=== PATIENT | female | born 1945 | race Caucasian/White ===

== ENCOUNTER 2020-08-25 04:42 | Observation (INO) | payer MEDICARE ==
[~2020-08-25] VITALS: Ht 167.6 cm; Wt 47.2 kg
[~2020-08-25 04:42] MED LIST: ADVAIR 500-501 EACH INH; ASPIR 8181 MG PO; ATORVASTATIN CA40 MG PO; BINOSTO70 MG PO; CALCIUM 600 +1 EAC1 PO; COZAAR 50 MG TA50 M2 PO; KLOR-CON 1010 MEQ PO; LEVAQUIN 500 M500 M2 PO; LOPRESSOR25 PO; OMEPRAZOLE40 MG PO; POTASSIUM20; SINGULAIR 10 MG10 M1 PO; TAZTIA XT180 MG PO; VENTOLIN HFA 1818 GM INH
[2020-08-25 04:48] VITALS: BP 128/66
[2020-08-25 05:20] LABS: ABSOLUTE BASOPHILS 0.1 thou/uL (0.0-0.2); ABSOLUTE EOSINOPHILS 0.1 thou/uL (0.0-0.7); ABSOLUTE LYMPHOCYTES 1.3 thou/uL (0.8-5.3); ABSOLUTE MONOCYTES 0.7 thou/uL (0.0-1.2); ABSOLUTE NEUTROPHILS 10.4 thou/uL (1.6-8.1); BASOPHILS 0.7 %; EOSINOPHILS 1.1 %; HEMOGLOBIN 9.9 gm/dL (12.0-15.0); LYMPHOCYTES 10.7 %; MCH 28.8 pg (26.0-34.0); MCV 90.1 fL (80.0-100.0); MONOCYTES 5.2 %; MPV 8.6 fl. (7.2-11.1); NUCLEATED RBCS 0 /100WBC; PLATELET COUNT* 375 thou/uL (150-400); POLYS 82.3 %; RBC 3.44 mil/uL (4.20-5.00); RDW-CV 16.8 % (10.5-14.5); WBC 12.6 thou/uL (4.0-11.0)
[2020-08-25] MEDS ORDERED: CARVEDILOL12.5 MG PO (05:21)
[2020-08-25] MEDS ORDERED: XARELTO20 MG PO (05:22)
[2020-08-25 05:24] LABS: CALCIUM 9.9 mg/dL (8.5-10.1); CREATININE 1.8 mg/dL (0.6-1.3); POTASSIUM 3.4 mmol/L (3.5-5.1)
[2020-08-25] MEDS ORDERED: LISINOPRIL10 MG PO (05:24)
[2020-08-25] MEDS ORDERED: FUROSEMIDE 20 M20 M1 PO (05:24)
[2020-08-25] MEDS ORDERED: PROAIR HFA8.5 GM INH (05:28)
[2020-08-25] MEDS ORDERED: ADVAIR 500-501 EACH INH (05:28)
[2020-08-25] MEDS ORDERED: FLONASE 0.05%50 MCG NARES (05:28)
[2020-08-25 05:29] LABS: ALBUMIN 3.4 g/dL (3.4-5.0); MAGNESIUM 1.8 mg/dL (1.8-2.4); TOTAL BILIRUBIN 0.5 mg/dL (<0.1-1.0); TOTAL PROTEIN 6.9 g/dL (6.4-8.2)
[2020-08-25 08:02] VITALS: BP 133/82
[2020-08-25 08:45] VITALS: BP 123/63
[2020-08-25 11:55] VITALS: BP 102/50
--- NOTE | 2020-08-25 15:29 | EKG ---
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 08/25/20 1528 0456 0456 Juan Mariano MD, [facility] /EPI
[2020-08-25 16:36] VITALS: BP 108/55
--- NOTE | 2020-08-25 16:42 | NUR ---
PATIENT ARRIVED TO 211 THIS AM PER CART FROM ER. PATIENT IS ALERT AND ORIENTED X 4. SHE DENIES PAIN. SHE C/O A HX OF DIARRHEA. NO LOOSE STOOLS SEEN SINCE ARRIVAL. PATIENT PLACED ON TELE MONITOR. TELE SHOWS SR TO ST. DR DANIELS IN TO SEE PATIENT. MEDICATION ORDERS WRITTEN. IV FLUIDS INFUSING. PATIENT STARTED ON A CARB CONTROLLED DIET. NO FALLS OR INJURY.
[2020-08-25 20:00] VITALS: BP 109/52
[2020-08-26 00:01] VITALS: BP 99/53
--- NOTE | 2020-08-26 05:58 | NUR ---
PATIENT SLEPT MOST OF THE NIGHT. PATIENT HAS STILL HAD NO LOOSE STOOLS. EFFIE IS HOPING TO POSSIBLY GO HOME TODAY. WILL CONTINUE TO MONITOR.
--- NOTE | 2020-08-26 07:15 | NUR ---
CHANGE OF SHIFT BEDSIDE REPORT GIVEN PATIENT SEEN AT BEDSIDE IN BED ASLEEP ASSUMED PATIENT CARE
[2020-08-26 08:00] VITALS: BP 125/62
[2020-08-26 10:53] LABS: HEMATOCRIT 22.1 % (37.0-47.0); MCH 29.4 pg (26.0-34.0); MCHC 32.7 g/dL (28.0-37.0); MCV 90.1 fL (80.0-100.0); MPV 8.4 fl. (7.2-11.1); RBC 2.45 mil/uL (4.20-5.00); RDW-CV 17.2 % (10.5-14.5); WBC 4.1 thou/uL (4.0-11.0)
[2020-08-26 10:58] VITALS: BP 125/62
[2020-08-26 11:06] LABS: HEMOGLOBIN 7.2 gm/dL (12.0-15.0)
[2020-08-26 11:07] LABS: CALCIUM 8.3 mg/dL (8.5-10.1); CREATININE 1.2 mg/dL (0.6-1.3); POTASSIUM 3.3 mmol/L (3.5-5.1)
--- NOTE | 2020-08-26 14:20 | NUR ---
patient dcd to home iv removed and personal belongings returned dc instructions given patient assisted to and out to taxi cab arranged for transportattion home
== END 2020-08-26 14:23 | disposition home or self-care (01) ==
LOC: M.ERS 04:42 → M.TBA-ER 06:32 → M.2W 08:15
PROVIDERS: Emergency Medicine; Family Medicine; ADMIT Internal Medicine; ATTEND Internal Medicine
DX: R19.7 Diarrhea, unspecified (principal); E86.0 Dehydration; Z20.822 Contact with and (suspected) exposure to COVID-19; E87.6 Hypokalemia; N17.0 Acute kidney failure with tubular necrosis; I10 Essential (primary) hypertension; K21.9 Gastro-esophageal reflux disease without esophagitis; R10.30 Lower abdominal pain, unspecified; J43.9 Emphysema, unspecified; Z90.710 Acquired absence of both cervix and uterus; Z90.49 Acquired absence of other specified parts of digestive tract; Z79.899 Other long term (current) drug therapy; Z88.1 Allergy status to other antibiotic agents; Z88.0 Allergy status to penicillin; Z88.2 Allergy status to sulfonamides; Z85.038 Personal history of other malignant neoplasm of large intestine

== ENCOUNTER 2021-01-17 18:20 | Inpatient (IN) | payer MEDICARE ==
[~2021-01-17] VITALS: Ht 167.6 cm; Wt 45.5 kg
--- NOTE | ~2021-01-17 | EMS ---
[address] [place] [address] EMS Patient Care Report Name: LIZETTE REES Room: [address] IN [facility]#: [id number] Admission: 01/17/21 Attend Phys: Tommie Lino Discharge: Date of : 45 Report #: [id number] THIS REPORT FOR: //name// Report Transmitted: 01/18/2021 01:34 EMS Care Summary [facility] Scott CONTE Incident [id number] @ 01/17/2021 17:31 Incident Location [address] [place] [address] Patient Lizette Rees Female, 75 Years 1945 Patient Address [address] [place] [address] Patient History Chronic Obstructive Pulmonary Disease (COPD),Hypertension (HTN),Atrial Fibrillation, Patient Allergies , Patient Medications Amlodipine, Xarelto, Carvedilol, Atorvastatin, Omeprazole, , Furosemide, Chief Complaint Weakness Disposition Transported No Lights/[place] Dispatch Reason Sick Person Transported To [facility] Narrative Dispatched for unknown medical, nonemergent. Arrive on scene, find patient sitting in he rlivign room waiting for EMS. Patient has a sling for her left arm. Patient is alert and answers EMS questions appropriately. I note no [address] [place] [address] EMS Patient Care Report Name: LIZETTE REES Room: [address] IN [facility]#: [id number] Admission: 01/17/21 Attend Phys: Tommie Lino Discharge: Date of : 45 Report #: [id number] obvious signs of distreess or any obvious injuries. patient states since this morning she has felt more weak than normal. She states she does not know the cause of the weakness, she thinks she is possibl dehydrated; though she states she drinks plenty of water. Patient had recently had a fall that broke her left collar bone on 01/08. Primary assessment showed alert and oriented female with a complaint of weakness. Obtain secondary questions on scene. patient was able to walk with EMS to the ambulance with minimal assistance without incident. Patient sat on cot and all safety belts were fasten. Loaded into ambulance and placed patient on the monitor. Obtained a 12 lead ekg, then began transport to [place]. En route, patient rested comfortably on the cot. EMS monitored her vitals the entire transport, they never left normal ranges. Gave radio report to [facility];arrived and unloaded patient without incident.Took patient to ER room Initial Vitals @17:51 @17:49P: 87,R: 16,BP: 153/87, @18:05P: 84,R: 16,BP: 139/74, @17:49GCS: 15, @18:05GCS: 15, @17:55 @18:13Glucose: -1, Assessments @17:41MENTAL:SKIN:HEENT:LUNG SOUNDS:ABDOMEN:PELVIS//GI:EXTREMITIES:PULSE:NEURO: Impression Generalized Weakness Procedures @17:5112-Lead ECGResponse: UnchangedSucceeded Timeline 17:31,Call Received 17:,Dispatch Notified 17:31,Psap Call 17:31,Dispatched 17:31,En Route 17:39,On Scene 17:41,At Patient 17:49,BP: 153/87 M,PULSE: 87,RR: 16 R,SPO2: Ox,ETCO2: ,BG: ,PAIN: ,GCS: , 17:49,BP: / M,PULSE: ,RR: R,SPO2: Ox,ETCO2: ,BG: ,PAIN: ,GCS: 15, 17:51,12-Lead ECG,Response: UnchangedSucceeded, 17:51,BP: / M,PULSE: ,RR: R,SPO2: Ox,ETCO2: ,BG: ,PAIN: ,GCS: , 17:52,Depart Scene 17:55,BP: / M,PULSE: ,RR: R,SPO2: Ox,ETCO2: ,BG: ,PAIN: ,GCS: , [place] [address] EMS Patient Care Report Name: LIZETTE REES Room: [address] [facility]#: [id number] Admission: 01/17/21 Attend Phys: Tommie Lino Discharge: Date of : 45 Report #: [id number] 18:05,BP: 139/74 M,PULSE: 84,RR: 16 R,SPO2: Ox,ETCO2: ,BG: ,PAIN: ,GCS: , 18:05,BP: / M,PULSE: ,RR: R,SPO2: Ox,ETCO2: ,BG: ,PAIN: ,GCS: 15, 18:13,BP: / M,PULSE: ,RR: R,SPO2: Ox,ETCO2: ,BG: -1,PAIN: ,GCS: , 18:18,At Destination 18:28,Call Closed Disclaimer v1.1 Copyright 2020 [employer] This EMS Care Summary contains data elements from the applicable legal record (which may be displayed differently). It is designed to provide pertinent information for the following purposes: continuity of care, clinical quality, and state data reporting. The complete legal record is available to ED staff and administrators of the receiving hospital in ES's Patient Tracker. All data is provided "as is."
--- NOTE | ~2021-01-17 | EMS ---
[address] [place] [address] EMS Patient Care Report Name: LIZETTE REES Room: [address] IN [facility]#: [id number] Admission: 01/17/21 Attend Phys: Tommie Lino Discharge: Date of : 45 Report #: [id number] THIS REPORT FOR: //name// Report Transmitted: 01/18/2021 01:34 EMS Care Summary [facility] Scott [place]TE Incident [id number] @ 01/17/2021 17:31 Incident Location [address] [place] [address] Patient Lizette Rees Female, 75 Years 1945 Patient Address [address] [place] [address] Patient History Chronic Obstructive Pulmonary Disease (COPD),Hypertension (HTN),Atrial Fibrillation, Patient Allergies , Patient Medications Amlodipine, Xarelto, Carvedilol, Atorvastatin, Omeprazole, , Furosemide, Chief Complaint Weakness Disposition Transported No Lights/[place] Dispatch Reason Sick Person Transported To [facility] Narrative Dispatched for unknown medical, nonemergent. Arrive on scene, find patient sitting in he rlivign room waiting for EMS. Patient has a sling for her left arm. Patient is alert and answers EMS questions appropriately. I note no [address] [place] [address] EMS Patient Care Report Name: LIZETTE REES Room: [address] IN [facility]#: [id number] Admission: 01/17/21 Attend Phys: Tommie Lino Discharge: Date of : 45 Report #: [id number] obvious signs of distreess or any obvious injuries. patient states since this morning she has felt more weak than normal. She states she does not know the cause of the weakness, she thinks she is possibl dehydrated; though she states she drinks plenty of water. Patient had recently had a fall that broke her left collar bone on 01/08. Primary assessment showed alert and oriented female with a complaint of weakness. Obtain secondary questions on scene. patient was able to walk with EMS to the ambulance with minimal assistance without incident. Patient sat on cot and all safety belts were fasten. Loaded into ambulance and placed patient on the monitor. Obtained a 12 lead ekg, then began transport to [place]. En route, patient rested comfortably on the cot. EMS monitored her vitals the entire transport, they never left normal ranges. Gave radio report to [facility];arrived and unloaded patient without incident.Took patient to ER room Initial Vitals @17:51 @17:49P: 87,R: 16,BP: 153/87, @18:05P: 84,R: 16,BP: 139/74, @17:49GCS: 15, @18:05GCS: 15, @17:55 @18:13Glucose: -1, Assessments @17:41MENTAL:SKIN:HEENT:LUNG SOUNDS:ABDOMEN:PELVIS//GI:EXTREMITIES:PULSE:NEURO: Impression Generalized Weakness Procedures @17:5112-Lead ECGResponse: UnchangedSucceeded Timeline 17:31,Call Received 17:,Dispatch Notified 17:31,Psap Call 17:31,Dispatched 17:31,En Route 17:39,On Scene 17:41,At Patient 17:49,BP: 153/87 M,PULSE: 87,RR: 16 R,SPO2: Ox,ETCO2: ,BG: ,PAIN: ,GCS: , 17:49,BP: / M,PULSE: ,RR: R,SPO2: Ox,ETCO2: ,BG: ,PAIN: ,GCS: 15, 17:51,12-Lead ECG,Response: UnchangedSucceeded, 17:51,BP: / M,PULSE: ,RR: R,SPO2: Ox,ETCO2: ,BG: ,PAIN: ,GCS: , 17:52,Depart Scene 17:55,BP: / M,PULSE: ,RR: R,SPO2: Ox,ETCO2: ,BG: ,PAIN: ,GCS: , [place] [address] EMS Patient Care Report Name: LIZETTE REES Room: [address] IN [facility]#: [id number] Admission: 01/17/21 Attend Phys: Tommie Lino Discharge: Date of : 45 Report #: [id number] 18:05,BP: 139/74 M,PULSE: 84,RR: 16 R,SPO2: Ox,ETCO2: ,BG: ,PAIN: ,GCS: , 18:05,BP: / M,PULSE: ,RR: R,SPO2: Ox,ETCO2: ,BG: ,PAIN: ,GCS: 15, 18:13,BP: / M,PULSE: ,RR: R,SPO2: Ox,ETCO2: ,BG: -1,PAIN: ,GCS: , 18:18,At Destination 18:28,Call Closed Disclaimer v1.1 Copyright 2020 [employer] This EMS Care Summary contains data elements from the applicable legal record (which may be displayed differently). It is designed to provide pertinent information for the following purposes: continuity of care, clinical quality, and state data reporting. The complete legal record is available to ED staff and administrators of the receiving hospital in ES's Patient Tracker. All data is provided "as is."
[~2021-01-17 18:20] MED LIST changes: +CARVEDILOL12.5 MG PO; +FLONASE 0.05%50 MCG NARES; +FUROSEMIDE 20 M20 M1 PO; +LISINOPRIL10 MG PO; +PROAIR HFA8.5 GM INH; +XARELTO20 MG PO
[2021-01-17 18:22] VITALS: BP 148/79
[2021-01-17 19:20] LABS: URINE BILIRUBIN NEGATIVE (Negative); URINE BLOOD 1+ (Negative); URINE CLARITY CLEAR; URINE COLOR YELLOW; URINE GLUCOSE-RANDOM NEGATIVE (Negative); URINE KETONES NEGATIVE (Negative); URINE LEUKOCYTES NEGATIVE (Negative); URINE NITRITE NEGATIVE (Negative); URINE PROTEIN NEGATIVE (Negative); URINE SPECIFIC GRAVITY <= 1.005 (1.005-1.030); URINE UROBILINOGEN 0.2 E.U./dl (0.2-1.0)
[2021-01-17 19:23] LABS: ABSOLUTE EOSINOPHILS 0.1 thou/uL (0.0-0.7); ABSOLUTE LYMPHOCYTES 0.9 thou/uL (0.8-5.3); ABSOLUTE MONOCYTES 0.4 thou/uL (0.0-1.2); ABSOLUTE NEUTROPHILS 4.1 thou/uL (1.6-8.1); BASOPHILS 0.9 %; EOSINOPHILS 1.7 %; HEMATOCRIT 26.9 % (37.0-47.0); HEMOGLOBIN 9.2 gm/dL (12.0-15.0); LYMPHOCYTES 16.3 %; MCH 34.6 pg (26.0-34.0); MCHC 34.1 g/dL (28.0-37.0); MCV 101.5 fL (80.0-100.0); MPV 7.9 fl. (7.2-11.1); NUCLEATED RBCS 0 /100WBC; PLATELET COUNT* 214 thou/uL (150-400); POLYS 73.1 %; RBC 2.66 mil/uL (4.20-5.00); RDW-CV 15.2 % (10.5-14.5); WBC 5.6 thou/uL (4.0-11.0)
[2021-01-17 19:32] LABS: CALCIUM 8.2 mg/dL (8.5-10.1); POTASSIUM 3.6 mmol/L (3.5-5.1)
[2021-01-17 19:36] LABS: BACTERIA 1-9 Few /HPF (None Seen); CASTS None Seen /LPF (None Seen); CRYSTALS None Seen /LPF (None Seen); SQUAMOUS 0-3 Few /LPF (0-3); URINE RBC 0-2 Rare /HPF (0-2); URINE WBC 0-5 Rare /HPF (0-5)
[2021-01-17 19:43] LABS: ALBUMIN 2.9 g/dL (3.4-5.0); TOTAL BILIRUBIN 0.5 mg/dL (<0.1-1.0); TOTAL PROTEIN 5.8 g/dL (6.4-8.2)
[2021-01-17 22:35] VITALS: BP 132/71
[2021-01-17 23:00] VITALS: BP 162/69
[2021-01-18 01:19] LABS: HEMATOCRIT 27.7 % (37.0-47.0); HEMOGLOBIN 9.5 gm/dL (12.0-15.0); MCHC 34.4 g/dL (28.0-37.0); MCV 101.7 fL (80.0-100.0); MPV 8.1 fl. (7.2-11.1); RBC 2.73 mil/uL (4.20-5.00); RDW-CV 15.3 % (10.5-14.5); WBC 4.9 thou/uL (4.0-11.0)
[2021-01-18] MEDS ORDERED: NORVASC 2.5 MG2.5 M1 PO (02:52)
[2021-01-18] MEDS ORDERED: FOSAMAX 70 MG T70 MG PO (02:52)
[2021-01-18] MEDS ORDERED: PEPCID40 MG PO (02:53)
[2021-01-18] MEDS ORDERED: ALBUTEROL2.5 MG/31 INH (02:54)
[2021-01-18 04:00] VITALS: BP 131/72
[2021-01-18 07:37] VITALS: BP 120/75
--- NOTE | 2021-01-18 09:53 | EKG ---
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[place] : 1945 Requested By: Pascual Easley Order Number: [id number] MD: James Watkins Measurements Intervals [place] Rate: 82 P: 67 [place]: 149 QRS: -5 QRSD: 89 T: 230 QT: 451 QTc: 527 Interpretive Statements Sinus rhythm nonspecific T wave changes septal infarct, age indeterminate Prolonged QT interval Compared to ECG 08/25/2020 04:56:54 Myocardial infarct finding now present Prolonged QT interval now present T wave changes now noted Electronically Signed On 01-18-2021 9:53:26 CDT by James Watkins [email or web address] <ELECTRONICALLY SIGNED> By: James Watkins MD, FACC 01/18/21 0953 14 14 James Watkins MD, FAC /EPI
--- NOTE | 2021-01-18 10:21 | CON ---
[address] [address] CONSULTATION Name: LIZETTE REES Room: [address] IN M.R.#: [id number] Admission: 01/17/21 Attend Phys: Tommie Lino Discharge: Date of : 45 Report #: [id number] THIS REPORT FOR: cc: [facility] - Clinic physician unknown [facility] - Clinic physician unknown James Watkins MD [facility] ~ cc: Trinity Adams MD DATE OF CONSULTATION: 01/18/2021 CARDIOLOGY CONSULTATION PRIMARY CARE PHYSICIAN: Trinity Adams M.D. HISTORY OF PRESENT ILLNESS: The patient is a 75-year-old single white female who I was asked to see in the hospital today after she is noted to have elevated troponin. The patient has no previous history of heart disease. Unfortunately, she has never been here to [place] before. I have no old records. The patient states she is not very active at this time. She lives with her son. She has not been hospitalized recently. She apparently was at a department store a week ago when she slipped and fell and was taken by ambulance to [place] and found to have a fractured left collar bone. She was placed in a sling. Recently, she complained of fatigue and having no energy. She denied any fever, cough, vomiting, diarrhea or bleeding. She has been taking her medications. She has occasional sharp chest pain, it lasts only a few seconds. There is no radiation of the pain. She denied any increased shortness of breath, palpitations, syncope, peripheral edema. She has no appetite. PAST MEDICAL HISTORY: She has had colon cancer with previous resection. She has a cholecystectomy. She has a history of hypertension, diabetes, hyperlipidemia. CURRENT MEDICATIONS: She uses an inhaler, Norvasc. She is on Xarelto, but she does not know why. She denies history of blood clots or atrial fibrillation. She is on Lasix for swelling, lisinopril, carvedilol, Lipitor. ALLERGIES: She has no known drug allergies. FAMILY HISTORY: Her mom had heart disease. SOCIAL HISTORY: She is , lives with son in [place]. Quit smoking years ago, rarely drinks alcohol. REVIEW OF SYSTEMS: No history of stroke. She has COPD. No history of bleeding, kidney disease, chronic skin condition. [place] [address] CONSULTATION Name: LIZETTE REES Room: [address]#: [id number] Admission: 01/17/21 Attend Phys: Tommie Lino Discharge: Date of : 45 Report #: [id number] PHYSICAL EXAMINATION: GENERAL: Revealed an elderly, frail-appearing female, who appears in no acute distress. VITAL SIGNS: She had a blood pressure of 130/70, pulse is 80. She is afebrile. HEENT: She was anicteric. Conjunctivae pink. Mucous membranes are moist. NECK: Veins not appear distended. No carotid bruits. Neck is supple. CHEST: Clear to auscultation. CARDIAC: Regular rate and rhythm without murmur. ABDOMEN: Soft. EXTREMITIES: Had no edema. Dorsalis pedis pulse 1+ bilaterally. SKIN: Cool and dry. NEUROLOGIC: Nonfocal. PSYCHIATRIC: Her mood is appropriate. IMAGING DATA: Her ECG when she arrived last night showed a sinus rhythm. There was nonspecific T-wave changes noted. She had x-rays in the Emergency Room last night that showed hyperinflated lung ramesh, right lung infiltrate, left clavicle fracture. LABORATORY WORK: Creatinine 1.0, albumin is only 2.9. Her high sensitivity troponin was 68 on admission, it climbed to 71. BNP 5557. Her hemoglobin 9.5, it was actually 9.2 back in 2016. Her COVID antigen stat test was negative. Her urinalysis last night negative for protein, 1+ blood. IMPRESSION AND RECOMMENDATIONS: 1. Borderline troponin. No evidence of acute myocardial infarction. No rise in troponin to suggest myocardial infarction. I would recommend an echocardiogram. 2. Weakness. Possibly related to anemia. I would check thyroid function studies. 3. History of colon cancer. 4. Hypertension. The patient is on a calcium ashley, RADHA inhibitor, beta ashley. 5. Chronic obstructive pulmonary disease. 6. Use of Xarelto, reason unclear. I would check with her primary care physician. 7. Hyperlipidemia. The patient is on a statin drug. 8. Previous tobacco abuse. 9. Chronic anemia. No recent bleeding. <ELECTRONICALLY SIGNED> By: James Watkins MD, [facility] 01/18/21 1021 0720 [id number] Watkins MD, FACC /nt
[2021-01-18 12:00] VITALS: BP 129/60
[2021-01-18 16:00] VITALS: BP 148/60
[2021-01-18 20:09] VITALS: BP 137/70
[2021-01-18 23:43] VITALS: BP 108/54
[2021-01-19 03:52] VITALS: BP 96/52
[2021-01-19 04:21] LABS: ABSOLUTE BASOPHILS 0.1 thou/uL (0.0-0.2); ABSOLUTE EOSINOPHILS 0.1 thou/uL (0.0-0.7); ABSOLUTE LYMPHOCYTES 0.3 thou/uL (0.8-5.3); ABSOLUTE MONOCYTES 0.3 thou/uL (0.0-1.2); ABSOLUTE NEUTROPHILS 3.6 thou/uL (1.6-8.1); BASOPHILS 1.2 %; EOSINOPHILS 1.3 %; HEMATOCRIT 27.5 % (37.0-47.0); HEMOGLOBIN 9.4 gm/dL (12.0-15.0); LYMPHOCYTES 7.5 %; MCH 34.9 pg (26.0-34.0); MCHC 34.1 g/dL (28.0-37.0); MCV 102.2 fL (80.0-100.0); MONOCYTES 6.4 %; MPV 8.5 fl. (7.2-11.1); NUCLEATED RBCS 0 /100WBC; PLATELET COUNT* 191 thou/uL (150-400); POLYS 83.6 %; RBC 2.69 mil/uL (4.20-5.00); RDW-CV 15.5 % (10.5-14.5); WBC 4.3 thou/uL (4.0-11.0)
[2021-01-19 04:30] LABS: CALCIUM 8.3 mg/dL (8.5-10.1); CREATININE 0.9 mg/dL (0.6-1.3); POTASSIUM 4.2 mmol/L (3.5-5.1)
[2021-01-19 08:01] VITALS: BP 126/55
--- NOTE | 2021-01-19 10:33 | EKG ---
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1945 Requested By: Liam Lee Order Number: [id number] MD: Juan Mariano Measurements Intervals [place] Rate: 62 P: 27 [place]: 152 QRS: -7 QRSD: 87 T: 233 QT: 540 QTc: 549 Interpretive Statements Sinus rhythm Borderline low voltage, extremity leads Anteroseptal infarct, old Abnrm T, probable ischemia, anterolateral lds Prolonged QT interval Compared to ECG 01/17/2021 19:15:13 Possible ischemia persists Myocardial infarct finding still present Electronically Signed On 01-19-2021 10:33:27 CDT by Juan Mariano [email or web address] <ELECTRONICALLY SIGNED> By: Juan Mariano MD, [facility] 01/19/21 1033 02 02 Juan Mariano MD, [facility] /EPI
[2021-01-19 12:00] VITALS: BP 97/51
--- NOTE | 2021-01-19 14:10 | 2DMMODE ---
[place] [address] 2 D/M-MODE ECHOCARDIOGRAM Name: LIZETTE REES Room: [address] IN [facility]#: [id number] Admission: 01/17/21 Attend Phys: Liam Lee Discharge: Date of : 45 Date of Service: 01/19/21 1410 Report #: [id number] THIS REPORT FOR: cc: [facility] - Clinic physician unknown [facility] - Clinic physician unknown Juan Mariano MD [facility] ~ APPROVED REPORT Study performed: 01/19/2021 11:36:24 EXAM: Comprehensive 2D, Doppler, and color-flow Echocardiogram Patient Location: In-Patient Room #: [facility] Status: routine BSA: 1.49 HR: 74 bpm BP: 126/55 mmHg Rhythm: NSR Other Information Study Quality: Good Indications Abnormal ECG Elevated Troponin 2D Dimensions IVSd: 10.85 (7-11mm) LVOT Diam: 20.10 (18-24mm) LVDd: 40.37 mm PWd: 9.45 (7-11mm) Ascending Ao: 32.26 (22-36mm) LVDs: 24.52 (25-40mm) Aortic Root: 33.24 mm Volumes Left Atrial Volume (Systole) LA ESV Index: 27.80 mL/m2 Aortic Valve AoV Peak Wally.: 1.27 m/s AO Peak Gr.: 6.40 mmHg LVOT Max P.42 mmHg AO Mean Gr.: 3.11 mmHg LVOT Mean P.89 mmHg LVOT Max V: 1.16 m/s AO V2 VTI: 23.33 cm LVOT Mean V: 0.60 m/s OSMAR (VTI): 2.75 cm2 LVOT V1 VTI: 20.19 [place] [address] 2 D/M-MODE ECHOCARDIOGRAM Name: LIZETTE REES Room: [address] IN [facility]#: [id number] Admission: 01/17/21 Attend Phys: Liam Lee Discharge: Date of : 45 Date of Service: 01/19/21 1410 Report #: [id number] Mitral Valve E/A Ratio: 0.84 MV Decel. Time: 196.83 ms MV E Max Wally.: 0.77 m/s MV PHT: 57.08 ms MVA (PHT): 3.85 cm2 TDI E/Lateral E': 9.63 E/Medial E': 9.63 Medial E' Wally.: 0.08 m/s Lateral E' Wally.: 0.08 m/s Pulmonary Valve PV Peak Wally.: 0.86 m/s PV Peak Gr.: 2.93 mmHg Tricuspid Valve RAP Estimate: 5.00 mmHg TR Peak Gr.: 21.68 mmHg RVSP: 26.00 mmHg PA Pressure: 26.00 mmHg Left Ventricle The left ventricle is normal size. There is normal LV segmental wall motion. Mild concentric left ventricular hypertrophy. Left ventricular systolic function is normal. The left ventricular ejection fraction is within the normal range. LVEF is 60%. Grade I - abnormal relaxation pattern. Right Ventricle The right ventricle is normal size. The right ventricular systolic function is normal. Atria The left atrium size is normal. The right atrium size is normal. Aortic Valve Mild aortic valve sclerosis. No aortic regurgitation is present. There is no aortic valvular stenosis. Mitral Valve The mitral valve is normal in structure. Trace mitral regurgitation. No evidence of mitral valve stenosis. Tricuspid Valve The tricuspid valve is normal in structure[place] [address] 2 D/M-MODE ECHOCARDIOGRAM Name: LIZETTE REES Room: [address] IN [facility]#: [id number] Admission: 01/17/21 Attend Phys: Liam Lee Discharge: Date of : 45 Date of Service: 01/19/21 1410 Report #: [id number] regurgitation. No pulmonary hypertension. Pulmonic Valve The pulmonary valve is normal in structure. There is no pulmonic valvular regurgitation. Great Vessels The aortic root is normal in size. IVC is normal in size and collapses >50% with inspiration. Pericardium There is no pericardial effusion. <Conclusion> The left ventricle is normal size. Mild concentric left ventricular hypertrophy. Left ventricular systolic function is normal. The left ventricular ejection fraction is within the normal range. LVEF is 60%. Grade I - abnormal relaxation pattern. The right ventricle is normal size. The left atrium size is normal. Mild aortic valve sclerosis. No aortic regurgitation is present. There is no aortic valvular stenosis. The mitral valve is normal in structure. Trace mitral regurgitation. The tricuspid valve is normal in structure. Mild tricuspid regurgitation. No pulmonary hypertension. IVC is normal in size and collapses >50% with inspiration. There is no pericardial effusion. There is normal LV segmental wall motion. <ELECTRONICALLY SIGNED> By: Juan Mariano MD, FACC 01/19/211409 09 09 Juan Mariano MD, FACC /INF
--- NOTE | 2021-01-19 15:44 | EKG ---
[place] [address] ELECTROCARDIOGRAM REPORT Name: LIZETTE REES Room: [address] ADM IN ..#: [id number] Admission: 01/17/21 Attend Phys: Liam Lee Discharge: Date of : 45 Date of Service: 01/19/21 1045 Report #: [id number] THIS REPORT FOR: //name// 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1945 Requested By: James Watkins Order Number: [id number] MD: Juan Mariano Measurements Intervals [place] Rate: 79 P: 69 [place]: 126 QRS: 0 QRSD: 90 T: 242 QT: 460 QTc: 528 Interpretive Statements Sinus rhythm Low voltage, extremity leads Anteroseptal infarct, old Abnrm T, probable ischemia, anterolateral lds Prolonged QT interval Compared to ECG 01/18/2021 23:03:02 No significant changes Electronically Signed On 01-19-2021 15:44:24 CDT by Juan Mariano [email or web address] <ELECTRONICALLY SIGNED> By: Juan Mariano MD, FACC 01/19/21 1544 1045 1045 Juan Mariano MD, FACC /EPI
[2021-01-19 17:16] LABS: CHOLESTEROL 110 mg/dL (<200); HDL CHOLESTEROL 46 mg/dL (>40); LDL CHOLESTEROL 57 mg/dL (<100); TC:HDL 2.4 Ratio (Not establshd); TRIGLYCERIDE 39 mg/dL (<150); VLDL 8 mg/dL (<40)
[2021-01-19 17:17] LABS: SERUM ASSESSMENT Clear
[2021-01-19 18:29] VITALS: BP 124/68
[2021-01-19 20:24] VITALS: BP 106/55
[2021-01-20] VITALS (12 sets, daily range): BP systolic 95–114; BP diastolic 50–69
[2021-01-20 04:00] LABS: ABSOLUTE EOSINOPHILS 0.1 thou/uL (0.0-0.7); ABSOLUTE LYMPHOCYTES 0.8 thou/uL (0.8-5.3); ABSOLUTE MONOCYTES 0.4 thou/uL (0.0-1.2); ABSOLUTE NEUTROPHILS 2.6 thou/uL (1.6-8.1); EOSINOPHILS 2.9 %; HEMATOCRIT 28.1 % (37.0-47.0); HEMOGLOBIN 9.6 gm/dL (12.0-15.0); LYMPHOCYTES 19.8 %; MCH 34.9 pg (26.0-34.0); MCHC 34.4 g/dL (28.0-37.0); MCV 101.5 fL (80.0-100.0); MPV 8.1 fl. (7.2-11.1); NUCLEATED RBCS 0 /100WBC; PLATELET COUNT* 200 thou/uL (150-400); POLYS 66.3 %; RBC 2.76 mil/uL (4.20-5.00); RDW-CV 15.1 % (10.5-14.5); WBC 3.9 thou/uL (4.0-11.0)
[2021-01-20 04:12] LABS: ALBUMIN 2.5 g/dL (3.4-5.0); CALCIUM 8.2 mg/dL (8.5-10.1); POTASSIUM 4.3 mmol/L (3.5-5.1); TOTAL BILIRUBIN 0.4 mg/dL (<0.1-1.0); TOTAL PROTEIN 5.4 g/dL (6.4-8.2)
--- NOTE | 2021-01-20 13:32 | CARD ---
[address] [address] CARDIAC CATH REPORT Name: LIZETTE REES Room: [address] IN [facility]#: [id number] Admission: 01/17/21 Attend Phys: Tommie Lino Discharge: Date of : 45 Report #: [id number] THIS REPORT FOR: cc: [facility] - Clinic physician unknown [facility] - Clinic physician unknown Jacob Mcmillan MD [facility] ~ APPROVED REPORT Study performed: 01/20/2021 08:40:43 Patient Details Patient Status: In-Patient Room #: 231 The [facility] 75 [facility] Personnel Kuldip Alcantara [employer]IN [employer] OPERATOR, Maryjane Hall RTR, Rae RN, Dereck Whittaker RTR Procedures Performed Left heart cath Procedure Narrative The patient was brought urgently to the Cardiac Catheterization Laboratory and was prepped and draped in a sterile manner. The right femoral was infiltrated with 2% Lidocaine subcutaneous anesthesia. IV conscious sedation was used throughout procedure with appropriate monitoring and was performed in the presence of a registered nurse who was an independent trained observer other than the physician performing the procedure. A 6Fr [place] sheath was inserted into the right femoral artery. Coronary angiography was performed using coronary diagnostic catheters. The right coronary system was accessed and visualized with a Diagnostic 6Fr JR4 catheter. The left coronary system was accessed and visualized with a Diagnostic 6Fr JL4 catheter. The left ventricle was accessed and visualized with a Diagnostic 6Fr str pigtail catheter. Left ventricular/Aortic Valve gradient assessed via catheter pullback. Left ventriculogram was performed in [place] projection. Pre-demployment femoral angiogram was performed . Closure device was deployed with a 6 Fr Mynx. The patient tolerated the procedure well and there were no complications associated with the procedure. There was no hematoma. Intraoperative Conscious Sedation Sedation start time: 1126 Case end Time: 1135 [place] [address] CARDIAC CATH REPORT Name: LIZETTE REES Room: [address] IN [facility]#: [id number] Admission: 01/17/21 Attend Phys: Tommie Lino Discharge: Date of : 45 Report #: [id number] Fentanyl 25.0 mcg Versed 1.0 mg Fluoro Time: 1.4 minutes Dose: DAP 95233 cGycm2 360 mGy Contrast Type and Amount: 80 Omnipaque Diagnostic Cath Left Main The left main coronary artery is calcified minimally plaqued. LAD The left into descending coronary artery is calcified proximally with 30% narrowing. The remainder the vessel is mildly plaqued. Diagonal 1 A tiny first diagonal branch appears diffusely plaque. Diagonal 2 A moderate second diagonal branch is minimally plaqued. Circumflex The circumflex coronary artery has mild 10% plaquing proximally. OM1 A large and branched first obtuse marginal branch has 10% mild plaquing. OM2 A tiny second obtuse marginal branch appears moderately diffusely plaque. Right Coronary The right coronary artery has mild 20% plaquing proximally. The distal vessel appears free of significant disease. R PDA A right PDA is minimally plaqued. RPLV A right posterolateral LV branches branched and minimally plaques. Left Ventriculography The left ventricle is normal in size with normal contractility. The left ventricular ejection fraction is estimated to be >70%. Hemodynamics The aortic pressure is 128/74 mmHg with a mean of 97 mmHg. The left ventricular pressure is 110/0 mmHg with a mean of 12 mmHg. The left ventricular end diastolic pressure is 11 mmHg. There was no gradient across the aortic valve upon pullback. Pullback from the left ventricle to the aorta revealed no gradient across the aortic valve. Conclusion #1. Minimal nonocclusive coronary artery disease as outlined above. #2. Normal left [place] [address] CARDIAC CATH REPORT Name: LIZETTE REES Room: [address] IN [facility]#: [id number] Admission: 01/17/21 Attend Phys: Tommie Lino Discharge: Date of : 45 Report #: [id number] #3. Normal left ventricular end-diastolic pressure. Recommendations #1. Continue medical management and aggressive risk factor modification. <ELECTRONICALLY SIGNED> By: Jacob Mcmillan MD, [facility] 01/20/211330 30 30[facility] Mcmillan MD, FACC /INF
[2021-01-20] MEDS ORDERED: DOXYCYCLINE 10100 MG PO (15:43)
[2021-01-20] MEDS ORDERED: COREG6.25 MG PO (15:48)
== END 2021-01-20 18:55 | disposition home or self-care (01) | DRG 177 ==
LOC: M.ERS 18:20 → M.2W 21:40 → M.TBA-ER 21:40 → M.2W 22:46
PROVIDERS: Internal Medicine; Internal Medicine Cardiovascular Disease; Personal Emergency Response Attendant; Physician Assistant; Registered Nurse; ADMIT Internal Medicine; ATTEND Internal Medicine
DX: J69.0 Pneumonitis due to inhalation of food and vomit (principal); E43 Unspecified severe protein-calorie malnutrition; Z68.1 Body mass index [BMI] 19.9 or less, adult; J43.9 Emphysema, unspecified; Z20.822 Contact with and (suspected) exposure to COVID-19; Z79.899 Other long term (current) drug therapy; Z88.2 Allergy status to sulfonamides; Z88.8 Allergy status to other drugs, medicaments and biological substances; S42.032A Displaced fracture of lateral end of left clavicle, initial encounter for closed fracture; X58.XXXA Exposure to other specified factors, initial encounter; Y93.89 Activity, other specified; Y92.89 Other specified places as the place of occurrence of the external cause; Y99.8 Other external cause status; D64.9 Anemia, unspecified; I10 Essential (primary) hypertension; E11.9 Type 2 diabetes mellitus without complications; K21.9 Gastro-esophageal reflux disease without esophagitis